=== PATIENT | male | born 1970 | race Two or more races ===

== ENCOUNTER 2017-11-29 13:58 | Emergency (ER) | payer SELFPAY ==
[~2017-11-29] VITALS: Ht 170.2 cm; Wt 65.8 kg
[2017-11-29 14:13] VITALS: BP 156/86
[2017-11-29 14:27] LABS: BASO # 0.1 x10^3/uL (0.0-0.2); BASO % 1 % (0-3); EOS # 0.1 x10^3/uL (0.0-0.7); EOS % 1 % (0-3); HEMATOCRIT 48.6 % (39.0-53.0); HEMOGLOBIN 16.6 g/dL (13.0-17.5); LYMPH # 3.2 x10^3/uL (1.0-4.8); LYMPH % 29 % (24-48); MEAN CORPUSCULAR HEMOGLOBIN 31 pg (25-35); MEAN CORPUSCULAR HGB CONC 34 g/dL (31-37); MEAN CORPUSCULAR VOLUME 91 fL (79-100); MONO # 0.8 x10^3/uL (0.0-1.1); MONO % 7 % (0-9); NEUT % 63 % (31-73); PLATELET COUNT 206 x10^3/uL (140-400); RED BLOOD COUNT 5.35 x10^6/uL (4.30-5.70); WHITE BLOOD COUNT 11.2 x10^3/uL (4.0-11.0)
[2017-11-29 14:44] LABS: ALBUMIN 4.1 g/dL (3.4-5.0); ALBUMIN/GLOBULIN RATIO 0.8 (1.0-1.7); CREATININE 1.2 mg/dL (0.7-1.3); GFR 64.4; POTASSIUM 3.5 mmol/L (3.5-5.1); TOTAL BILIRUBIN 0.4 mg/dL (0.2-1.0); TOTAL PROTEIN 9.1 g/dL (6.4-8.2)
[2017-11-29] MEDS ORDERED: predniSONE 10 MG TABLET PO ONE (15:00)
[2017-11-29] MEDS ORDERED: IPRATRPIUM/ALBUTEROL 0.5/2.5MG 3 ML NEBU. NEB ONE (15:00)
[2017-11-29] MEDS ORDERED: IPRATRPIUM/ALBUTEROL 0.5/2.5MG 3 ML NEBU. ONE (15:06)
--- NOTE | 2017-11-29 15:10 | EKG ---
[facility] [address] [place] [address] Test Date: 2017-11-29 Test Time: 14:34:51 Pat Name: FRITZ QUEZADA Department: Room: Gender: Sales Assistant Institutional Sales: : 1970 Requested By: TRISTAN ELLISON Order Number: [id number] Reading MD: Vick Vinson MD Measurements Intervals Dexter Rate: 68 P: 51 [place]: 160 QRS: 2 QRSD: 78 T: 35 QT: 366 QTc: 394 Interpretive Statements SINUS RHYTHM Electronically Signed On 12-02-2017 12:02:26 CDT by Vick Vinson MD
--- NOTE | 2017-11-29 15:10 | RAD ---
CHEST PA and LATERAL Clinical indications: COUGH X 3 WKS. COMPARISON: None available. Findings: No acute lung infiltrate or pleural effusion or pulmonary edema or lung mass or pneumothorax is seen. The heart size, pulmonary vasculature, mediastinum and both suresh are unremarkable. The osseous structures appear intact. Impression: No acute radiographic abnormality is seen. Electronically signed by: Josh Rice MD (11/29/2017 3:07 PM) [facility]
[2017-11-29] MEDS ORDERED: predniSONE 10 MG TABLET ONE ×2 (15:13→15:15)
[2017-11-29] MEDS ORDERED: HYDR5SUS PO (15:27)
[2017-11-29] MEDS ORDERED: PRED50TA PO (15:27)
[2017-11-29] MEDS ORDERED: AZIT250T PO (15:27)
[2017-11-29] MEDS ORDERED: PROAIR HFA8.5 GM INH (15:27)
--- NOTE | 2017-11-29 15:30 | PHYS DOC ---
Past Medical History Past Medical History: No Pertinent History Alcohol Use: Heavy Drug Use: None Adult General Chief Complaint Chief Complaint: SHORTNESS OF BREATH HPI HPI Patient is a 47 year old male who presents with cough and shortness of breath. The patient was seen at urgent care and they called EMS to have him transported to the emergency department for a low oxygen saturation. EMS reported that the patient was 98% on room air in the rig. The patient is resting comfortably in bed here with a strong harsh cough. He denies fever. He states that his cough is been going on for approximately 3 weeks. He now has pain in the chest when he coughs as well as his back. Review of Systems Review of Systems Constitutional: Denies fever or chills [] Eyes: Denies change in visual acuity, redness, or eye pain [] HENT: Denies nasal congestion or sore throat [] Respiratory: See history of present illness Cardiovascular: No additional information not addressed in HPI [] GI: Denies abdominal pain, nausea, vomiting, bloody stools or diarrhea [] : Denies dysuria or hematuria [] Musculoskeletal: Denies back pain or joint pain [] Integument: Denies rash or skin lesions [] Neurologic: Denies headache, focal weakness or sensory changes [] Endocrine: Denies polyuria or polydipsia [] All other systems were reviewed and found to be within normal limits, except as documented in this note. Current Medications Current Medications Current Medications Medications (Trade) Dose Ordered Sig/Tomasa Start Time Stop Time Status Last Admin Dose Admin Albuterol/ Ipratropium (Duoneb) 3 ml STK-MED ONCE 11/29/17 15:06 11/29/17 15:42 DC Prednisone (Prednisone) 10 mg STK-MED ONCE 11/29/17 15:15 11/29/17 15:42 DC Physical Exam Physical Exam Constitutional: Well developed, well nourished, no acute distress, non-toxic appearance. [] HENT: Normocephalic, atraumatic, bilateral tympanic membranes normal, oropharynx moist, no oral exudates, nose normal. [] Eyes: PERRLA, EOMI, conjunctiva normal, no discharge. [] Neck: Normal range of motion, no tenderness, supple, no stridor. [] Cardiovascular:Heart rate regular rhythm, no murmur [] Lungs & Thorax: Bilateral breath sounds decreased at bases with no wheezing noted Abdomen: Bowel sounds normal, soft, no tenderness, no masses, no pulsatile masses. [] Skin: Warm, dry, no erythema, no rash. [] Neurologic: Alert and oriented X 3, normal motor function, normal sensory function, no focal deficits noted. [] Psychologic: Affect normal, judgement normal, mood normal. [] Current Patient Data Vital Signs Vital Signs Date Time Temp Pulse Resp B/P (MAP) Pulse Ox O2 Delivery O2 Flow Rate FiO2 11/29/17 15:12 93 Room Air 11/29/17 14:13 98.3 75 16 156/86 (109) 98.3 Lab Values Laboratory Tests Test 11/29/17 14:18 White Blood Count 11.2 x10^3/uL (4.0-11.0) H Red Blood Count 5.35 x10^6/uL (4.30-5.70) Hemoglobin 16.6 g/dL (13.0-17.5) Hematocrit 48.6 % (39.0-53.0) Mean Corpuscular Volume 91 fL (79-100) Mean Corpuscular Hemoglobin 31 pg (25-35) Mean Corpuscular Hemoglobin Concent 34 g/dL (31-37) Red Cell Distribution Width 14.0 % (11.5-14.5) Platelet Count 206 x10^3/uL (140-400) Neutrophils (%) (Auto) 63 % (31-73) Lymphocytes (%) (Auto) 29 % (24-48) Monocytes (%) (Auto) 7 % (0-9) Eosinophils (%) (Auto) 1 % (0-3) Basophils (%) (Auto) 1 % (0-3) Neutrophils # (Auto) 7.0 x10^3uL (1.8-7.7) Lymphocytes # (Auto) 3.2 x10^3/uL (1.0-4.8) Monocytes # (Auto) 0.8 x10^3/uL (0.0-1.1) Eosinophils # (Auto) 0.1 x10^3/uL (0.0-0.7) Basophils # (Auto) 0.1 x10^3/uL (0.0-0.2) Sodium Level 135 mmol/L (136-145) L Potassium Level 3.5 mmol/L (3.5-5.1) Chloride Level 99 mmol/L (98-107) Carbon Dioxide Level 26 mmol/L (21-32) Anion Gap 10 (6-14) Blood Urea Nitrogen 22 mg/dL (8-26) Creatinine 1.2 mg/dL (0.7-1.3) Estimated GFR (Cockcroft-Gault) 64.4 BUN/Creatinine Ratio 18 (6-20) Glucose Level 106 mg/dL (70-99) H Calcium Level 10.0 mg/dL (8.5-10.1) Total Bilirubin 0.4 mg/dL (0.2-1.0) Aspartate Amino Transferase (AST) 17 U/L (15-37) Alanine Aminotransferase (ALT) 31 U/L (16-63) Alkaline Phosphatase 93 U/L (46-116) Creatine Kinase 197 U/L (39-308) Creatine Kinase MB (Mass) 1.6 ng/mL (0.0-3.6) Creatine Kinase MB Relative Index 0.8 % (0-4) Troponin I Quantitative < 0.017 ng/mL (0.000-0.055) Total Protein 9.1 g/dL (6.4-8.2) H Albumin 4.1 g/dL (3.4-5.0) Albumin/Globulin Ratio 0.8 (1.0-1.7) L Laboratory Tests 11/29/17 14:18 Laboratory Tests 11/29/17 14:18 EKG EKG [] Radiology/Procedures Radiology/Procedures []PATIENT: FRITZ QUEZADAACCOUNT: [id number]#: [id number] : 1970 LOCATION: ER AGE: 47 SEX: M EXAM STATUS: PRE ER ORD. PHYSICIAN: TRISTAN ELLISON APRN REASON: cough x 3 weeks PROCEDURE: CHEST PA & LATERAL CHEST PA and LATERAL Clinical indications: COUGH X 3 WKS. COMPARISON: None available. Findings: No acute lung infiltrate or pleural effusion or pulmonary edema or lung mass or pneumothorax is seen. The heart size, pulmonary vasculature, mediastinum and both suresh are unremarkable. The osseous structures appear intact. Impression: No acute radiographic abnormality is seen. Electronically signed by: Steve Rice MD (11/29/2017 3:07 PM) [facility] DICTATED and SIGNED BY: STEVE RICE MD DATE: 11/29/17 6562 Course & Med Decision Making Course & Med Decision Making Pertinent Labs and Imaging studies reviewed. (See chart for details) The patient has been given prednisone and a DuoNeb breathing treatment in the emergency department. His x-ray is negative for pneumonia. He will be treated for bronchitis. Dragon Disclaimer Dragon Disclaimer This electronic medical record was generated, in whole or in part, using a voice recognition dictation system. Departure Departure Impression: Primary Impression: Bronchitis Disposition: HOME, SELF-CARE Condition: STABLE Referrals: NO PCP (PCP) Patient Instructions: Bronchitis Additional Instructions: Take the medications as prescribed. Follow-up with your primary care provider in one week if not improving or return to the emergency department if worsening. Scripts Hydrocodone/Chlorphen Polis (HYDROCODONE-CHLORPHENIRAM SUSP) 5 Ml Hallie.er.12h 5 ML PO PRN Q12HR PRN for COUGH, #120 ML 0 Refills Prov: TRISTAN ELLISON APRN 11/29/17 Azithromycin (ZITHROMAX) 250 Mg Tablet 1 PKG PO UD, #1 PKG Prov: TRISTAN ELLISON APRN 11/29/17 Prednisone (PREDNISONE) 50 Mg Tablet 1 TAB PO DAILY, #5 TAB Prov: TRISTAN ELLISON APRN 11/29/17 Albuterol Sulfate (PROAIR HFA INHALER) 8.5 Gm Hfa.aer.ad 1 PUFF INH PRN Q6HRS PRN for SHORTNESS OF BREATH, #1 INHALER 0 Refills Prov: TRISTAN ELLISON APRN 11/29/17 TRISTAN ELLISON APRN Nov 29, 2017 15:30
== END 2017-11-29 15:42 | disposition home or self-care (01) ==
LOC: ER 13:58
DX: J40 Bronchitis, not specified as acute or chronic (principal); F10.10 Alcohol abuse, uncomplicated; Y90.9 Presence of alcohol in blood, level not specified
CPT/HCPCS: 36415; 71046; 80053; 82553; 84484; 85025; 93005; 94640; 99285; J7512; J7620